=== PATIENT | male | born 1950 | race Caucasian/White ===

== ENCOUNTER 2019-03-31 17:58 | Emergency (ER) | payer MEDICARE ==
[2019-03-31 18:31] VITALS: O2SAT 98
[2019-03-31] MEDS ORDERED: solu-CORTEF 250MG IM STA (18:40)
[2019-03-31] MEDS ORDERED: BENADRYL 50 MG/ML IM ONE (18:41)
--- NOTE | 2019-03-31 18:45 | ERPHSYRPT ---
- History of Present Illness Time Seen by Provider: 03/31/19 18:41 Source: patient Exam Limitations: no limitations Patient Subjective Stated Complaint: Pt states "I was out walking my dog and I felt something on my right hand, I had a spot of blood coming off my hand and it started to swell and I had a redness going up my arm." Triage Nursing Assessment: Pt presented alert and orietned X 3, skin pwd. Pt ambulates with an upright steady gait, able to speak in clear full sentences. pt right hand swollen on fist and second knucle as well first and second digit. Physician History: Pt states "I was out walking my dog and I felt something on my right hand, I had a spot of blood coming off my hand and it started to swell and I had a redness going up my arm." no bleeding from site in ER, no other symptoms Timing/Duration: today Modifying Factors: Improves With: cold therapy Associated Symptoms: denies symptoms Allergies/Adverse Reactions: shrimp Allergy (Severe, Verified 03/31/19 18:32) Swelling codeine Adverse Reaction (Severe, Verified 03/31/19 18:32) Vomiting contrast dye Allergy (Severe, Uncoded 03/31/19 18:32) Swelling Home Medications: Clopidogrel Bisulfate 75 mg [PLAVIX 75 MG Tablet] 75 mg PO DAILY 03/31/19 [History] Metoprolol Succinate [Toprol Xl] 50 mg PO DAILY 03/31/19 [History] Hx Tetanus, Diphtheria Vaccination/Date Given: Yes Hx Influenza Vaccination/Date Given: Yes Hx Pneumococcal Vaccination/Date Given: Yes Immunizations Up to Date: Yes - Review of Systems Constitutional: No Symptoms Eyes: No Symptoms Ears, Nose, & Throat: No Symptoms Respiratory: No Symptoms Cardiac: No Symptoms Abdominal/Gastrointestinal: No Symptoms Skin: Induration - Past Medical History Pertinent Past Medical History: Yes Neurological History: No Pertinent History ENT History: No Pertinent History Cardiac History: Coronary Artery Disease, Hypertension, Myocardial Infarction ( [place]), Other Respiratory History: COPD Endocrine Medical History: No Pertinent History Musculoskeletal History: No Pertinent History GI Medical History: GERD History: No Pertinent History Psycho-Social History: No Pertinent History Male Reproductive Disorders: No Pertinent History - Past Surgical History Past Surgical History: Yes Cardiac: CABG Other Surgical History: left lower lobe removed - Social History Smoking Status: Former smoker Exposure to second hand smoke: Yes Drug Use: none Patient Lives Alone: No - Nursing Vital Signs Nursing Vital Signs: Initial Vital Signs Temperature 98.1 F 03/31/19 18:24 Pulse Rate 64 03/31/19 18:24 Respiratory Rate 18 03/31/19 18:24 Blood Pressure 138/68 03/31/19 18:24 O2 Sat by Pulse Oximetry 98 03/31/19 18:24 Pain Scale Pain Intensity 4 - Physical Exam General Appearance: no apparent distress Eye Exam: PERRL/EOMI Ears, Nose, Throat Exam: normal ENT inspection Neck Exam: normal inspection Respiratory Exam: normal breath sounds Skin Exam: rash (on right hand knuckle area), other SpO2: 98 - Course Nursing assessment & vital signs reviewed: Yes Ordered Tests: Medication Summary Generic Name Dose Route Start Last Admin Trade Name Freq PRN Reason Stop Dose Admin Diphenhydramine HCl 50 mg 03/31/19 18:41 Benadryl 50 Mg/Ml IM 03/31/19 18:42 STAT ONE Hydrocortisone Sodium Succinate 250 mg 03/31/19 18:40 Solu-Cortef 250mg IM 03/31/19 18:41 Q6H STA - Progress Progress: improved Counseled pt/family regarding: diagnosis, need for follow-up - Departure Departure Disposition: Home Clinical Impression: Insect bite (nonvenomous) of right hand, initial encounter Condition: Stable Critical Care Time: No Referrals: ALFREDITO MORALES [Primary Care Provider] - Instructions: Insect Bites and Stings (DC) Additional Instructions: Take Benadryl 25 mg 3 times a day. Apply Benadryl cream and hydrocortisone 1% cream 3 times a day on affected area. Discharge/Care Plan DELORIS MUSE was seen on 03/31/19 in the Emergency Room. The patient was counseled regarding Diagnosis,Lab results, Imaging studies, need for follow up and when to return to the Emergency Room. Prescriptions given: Discharge Note I have spoken with the patient and/or caregivers. I have explained the patient' s condition, diagnosis and treatment plan based on the information available to me at this time. I have answered the patient's and/or caregiver's questions and addressed any concerns. The patient and/or caregivers have as good understanding of the patient's diagnosis, condition and treatment plan as can be expected at this point. The vital signs have been stable. The patient's condition is stable and appropriate for discharge from the emergency department. The patient will pursue further outpatient evaluation with the primary care physician or other designated or consulting physician as outlined in the discharge instructions. The patient and/or caregivers are agreeable to this plan of care and follow-up instructions have been explained in detail. The patient and/or caregivers have received these instruction. The patient/and or caregivers are aware that any significant change in condition or worsening of symptoms should prompt an immediate return to this or the closest emergency department or call 911.
[2019-03-31] MEDS ORDERED: solu-CORTEF 250MG ONE (18:52)
[2019-03-31] MEDS ORDERED: BENADRYL 50 MG/ML ONE (18:52)
[2019-03-31 19:22] VITALS: BP 120/63; PULSE 67
== END 2019-03-31 19:55 | disposition home or self-care (01) ==
LOC: ED 17:58
DX: M79.89 Other specified soft tissue disorders (principal); I25.10 Atherosclerotic heart disease of native coronary artery without angina pectoris; I10 Essential (primary) hypertension; I25.2 Old myocardial infarction; J44.9 Chronic obstructive pulmonary disease, unspecified; K21.9 Gastro-esophageal reflux disease without esophagitis; Z79.899 Other long term (current) drug therapy; W57.XXXA Bitten or stung by nonvenomous insect and other nonvenomous arthropods, initial encounter
CPT/HCPCS: 96372; 99284; J1200; J1720

== ENCOUNTER 2019-11-01 02:18 | Emergency (ER) | payer MEDICARE ==
[2019-11-01] MEDS ORDERED: BABY ASPIRIN 81 MG CHEW PO ONE (02:43)
--- NOTE | 2019-11-01 02:43 | ERPHSYRPT ---
- History of Present Illness Time Seen by Provider: 11/01/19 02:30 Historian: patient, family Exam Limitations: no limitations Patient Subjective Stated Complaint: pt states he was going up the steps at home and began having severe chest pain. states his blood pressure was 244/87 at home with hr of 60 at home prior to taking nitro. Triage Nursing Assessment: pt alert and oriented, answers questions approp. pt ambulatory with steady gait noted. respirations nonlabored with lungs cta. heart rate 70, sinus rhythm on monitor. pt states pain is 2/10 at this time and radiates to back. Physician History: 69 y/o white male with h/o mi, recent cardiac and remote stent placement 7 times , presents with sharp, central chest pain that radiates into back with associated htn. pt has had same sx with mi in past. in the last 7 weeks since stent placement pt has intermittent cp as above with elevated bp resolving rapidly. pt on isosorbide dinitrate, metoprolol, plavix, statin and asa. this am cp came on suddenly and has not resolved as before. pt took 3 ntg. cp improved on arrival here and is a 2/10. pt has been hospitalized 3 times in last 3 months for these sx. pt has remote h/o left lower lobectomy and cardiac triple bypass Timing/Duration: today, sudden, improved Activities at Onset: none Quality: sharpness, stabbing Location: substernal, central Chest Pain Radiation: back Severity of Pain-Max: moderate Severity of Pain-Current: mild Modifying Factors: Improves With: nitroglycerin Associated Symptoms: No nausea, No vomiting, No palpitations, No abdominal pain , No shortness of breath, No cough Prior Chest Pain/Cardiac Workup: cardiac cath, heart attack, recently seen/ treated, recent hospitalization Nitro Today/Relief: 0.4 mg x 3, mild relief Aspirin Treatment Today: no aspirin today Allergies/Adverse Reactions: shrimp Allergy (Severe, Verified 11/01/19 02:47) Swelling codeine Adverse Reaction (Severe, Verified 11/01/19 02:47) Vomiting contrast dye Allergy (Severe, Uncoded 11/01/19 02:47) Swelling Home Medications: Clopidogrel Bisulfate 75 mg [PLAVIX 75 MG Tablet] 75 mg PO DAILY 03/31/19 [History] Metoprolol Succinate [Toprol Xl] 50 mg PO DAILY 03/31/19 [History] Aspirin EC 81 mg [Ecotrin 81 mg] 81 mg PO DAILY 11/01/19 [History] Atorvastatin Calcium [Lipitor] mg PO HS 11/01/19 [History] Isosorbide Mononitrate [Isosorbide Mononitrate ER] 90 mg PO DAILY 11/01/19 [ History] Nitroglycerin 0.4 mg (Ed) [Nitrostat 0.4 MG (ED)] 0.4 mg SL UD 11/01/19 [ History] Hx Tetanus, Diphtheria Vaccination/Date Given: Yes Hx Influenza Vaccination/Date Given: Yes Hx Pneumococcal Vaccination/Date Given: Yes Immunizations Up to Date: Yes - Review of Systems Constitutional: No Symptoms Eyes: No Symptoms Ears, Nose, & Throat: No Symptoms Respiratory: No Symptoms Cardiac: Chest Pain Abdominal/Gastrointestinal: No Symptoms Genitourinary Symptoms: No Symptoms Musculoskeletal: No Symptoms Skin: No Symptoms Neurological: No Symptoms Psychological: No Symptoms Endocrine: No Symptoms Hematologic/Lymphatic: No Symptoms Immunological/Allergic: No Symptoms All Other Systems: Reviewed and Negative - Past Medical History Pertinent Past Medical History: Yes Neurological History: No Pertinent History ENT History: No Pertinent History Cardiac History: Coronary Artery Disease, Hypertension, Myocardial Infarction ( [place]), Other Respiratory History: COPD Endocrine Medical History: No Pertinent History Musculoskeletal History: No Pertinent History GI Medical History: GERD History: No Pertinent History Psycho-Social History: No Pertinent History Male Reproductive Disorders: No Pertinent History - Past Surgical History Past Surgical History: Yes Cardiac: CABG Respiratory: No Pertinent History Gastrointestinal: No Pertinent History Genitourinary: No Pertinent History Musculoskeletal: No Pertinent History Male Surgical History: No Pertinent History Other Surgical History: left lower lobe removed. triple bypass. cath with cardiac stent 7 weeks ago - Social History Smoking Status: Former smoker Exposure to second hand smoke: Yes Drug Use: none Patient Lives Alone: No - Nursing Vital Signs Nursing Vital Signs: Initial Vital Signs Pulse Rate 70 11/01/19 02:21 Respiratory Rate 18 11/01/19 02:21 Blood Pressure 151/72 11/01/19 02:21 O2 Sat by Pulse Oximetry 98 11/01/19 02:21 Pain Scale Pain Intensity 2 - Physical Exam General Appearance: mild distress, alert, anxiety Eye Exam: PERRL/EOMI, eyes nml inspection Ears, Nose, Throat Exam: normal ENT inspection, moist mucous membranes Neck Exam: normal inspection, non-tender, supple, full range of motion Respiratory Exam: normal breath sounds, chest tenderness, lungs clear, airway intact, No respiratory distress Cardiovascular Exam: regular rate/rhythm, normal heart sounds, normal peripheral pulses Gastrointestinal/Abdomen Exam: soft, normal bowel sounds, No tenderness Rectal Exam: not done Back Exam: normal inspection, normal range of motion, CVA tenderness Extremity Exam: normal inspection, normal range of motion, pelvis stable Neurologic Exam: alert, oriented x 3, cooperative, water supply engineer II-XII nml as tested, nml cerebellar function, nml station & gait Skin Exam: normal color, warm, dry Lymphatic Exam: No adenopathy SpO2 Interpretation: normal SpO2: 98 O2 Delivery: Room Air - Course Nursing assessment & vital signs reviewed: Yes EKG Interpreted by Me: RATE (68), Sinus Rhythm, NORMAL AXIS, NORMAL INTERVALS, NORMAL QRS, Other (s1/s111 pattern) Ordered Tests: Active Orders 24 hr Category Date Time Status Blanket Winder Helper STAT Care 11/01/19 02:43 Active EKG-ER Only STAT Care 11/01/19 02:43 Active IV Insertion STAT Care 11/01/19 02:43 Active Pulse Oximetry (ED) STAT Care 11/01/19 02:43 Active CHEST 1 VIEW (PORTABLE) Stat Exams 11/01/19 02:43 Taken CBC W DIFF Stat Lab 11/01/19 02:30 Completed CMP Stat Lab 11/01/19 02:30 Completed NT PRO BNP Stat Lab 11/01/19 02:30 Completed PROTIME WITH INR Stat Lab 11/01/19 02:30 Completed TROPONIN Q3H Lab 11/01/19 02:30 Completed TROPONIN Q3H Lab 11/01/19 04:30 Completed TROPONIN Q3H Lab 11/01/19 08:45 Ordered TROPONIN Q3H Lab 11/01/19 11:45 Ordered TROPONIN Q3H Lab 11/01/19 14:45 Ordered Medication Summary Discontinued Medications Generic Name Dose Route Start Last Admin Trade Name Freq PRN Reason Stop Dose Admin Aspirin 324 mg 11/01/19 02:43 11/01/19 02:51 Baby Aspirin 81 Mg Chew PO 11/01/19 02:44 324 mg STAT ONE Administration Lab/Rad Data: Laboratory Result Diagrams 11/01/19 02:30 11/01/19 02:30 Laboratory Results 11/01/19 11/01/19 11/01/19 Range/Units 04:30 02:30 02:30 WBC (4.0-10.5) K/mm3 RBC (4.1-5.6) M/mm3 Hgb (12.5-18.0) gm/dl Hct (42-50) % MCV (78-100) fl MCH (26-32) pg MCHC (32-36) g/dl RDW (11.5-14.0) % Plt Count (150-450) K/mm3 MPV (6-9.5) fl Gran % (36.0-66.0) % Eos # (Auto) (0-0.5) Absolute Lymphs (auto) (1.0-4.6) Absolute Monos (auto) (0.0-1.3) Lymphocytes % (24.0-44.0) % Monocytes % (0.0-12.0) % Eosinophils % (0.00-5.0) % Basophils % (0.0-0.4) % Absolute Granulocytes (1.4-6.9) Basophils # (0-0.4) PT 11.4 (8.83-12.87) SECONDS INR 1.01 (0.8-3.0) Sodium (137-145) mmol/L Potassium (3.5-5.1) mmol/L Chloride (98-107) mmol/L Carbon Dioxide (22-30) mmol/L Anion Gap (5-15) MEQ/L BUN (9-20) mg/dL Creatinine (0.66-1.25) mg/dL Estimated GFR ML/MIN Glucose (74-106) mg/dL Calcium (8.4-10.2) mg/dL Total Bilirubin (0.2-1.3) mg/dL AST (17-59) U/L ALT (0-50) U/L Alkaline Phosphatase (38-126) U/L Troponin I 0.016 < 0.012 (0.000-0.034) ng/mL NT-Pro-B Natriuret Pep (0-900) pg/mL Serum Total Protein (6.3-8.2) g/dL Albumin (3.5-5.0) g/dL 11/01/19 11/01/19 Range/Units 02:30 02:30 WBC 5.5 (4.0-10.5) K/mm3 RBC 4.43 (4.1-5.6) M/mm3 Hgb 14.2 (12.5-18.0) gm/dl Hct 41.0 L (42-50) % MCV 92.6 (78-100) fl MCH 32.1 H (26-32) pg MCHC 34.6 (32-36) g/dl RDW 13.1 (11.5-14.0) % Plt Count 140 L (150-450) K/mm3 MPV 11.0 H (6-9.5) fl Gran % 45.1 (36.0-66.0) % Eos # (Auto) 0.14 (0-0.5) Absolute Lymphs (auto) 2.38 (1.0-4.6) Absolute Monos (auto) 0.48 (0.0-1.3) Lymphocytes % 43.2 (24.0-44.0) % Monocytes % 8.7 (0.0-12.0) % Eosinophils % 2.5 (0.00-5.0) % Basophils % 0.5 (0.0-0.4) % Absolute Granulocytes 2.48 (1.4-6.9) Basophils # 0.03 (0-0.4) PT (8.83-12.87) SECONDS INR (0.8-3.0) Sodium 138 (137-145) mmol/L Potassium 3.6 (3.5-5.1) mmol/L Chloride 104 (98-107) mmol/L Carbon Dioxide 26 (22-30) mmol/L Anion Gap 11.4 (5-15) MEQ/L BUN 11 (9-20) mg/dL Creatinine 0.93 (0.66-1.25) mg/dL Estimated GFR > 60.0 ML/MIN Glucose 143 H (74-106) mg/dL Calcium 9.7 (8.4-10.2) mg/dL Total Bilirubin 0.40 (0.2-1.3) mg/dL AST 31 (17-59) U/L ALT 18 (0-50) U/L Alkaline Phosphatase 59 (38-126) U/L Troponin I (0.000-0.034) ng/mL NT-Pro-B Natriuret Pep 228 (0-900) pg/mL Serum Total Protein 7.1 (6.3-8.2) g/dL Albumin 4.1 (3.5-5.0) g/dL - Progress Progress: improved, re-examined Air Movement: good Progress Note: 11/01/19 06:25 3 hour repeat ekg at 0522: nsr 55 bpm, s1/s111 pattern, no acute st segment changes. qrs wnl. no changes from earlier ekg. cxr-no acute process. cardiomegaly. [address] betancourt, personal finance instructor covering for pts personal finance instructor, dr. navarro. i reviewed pt hx, labs(trend as well), xray and ekg results with dr. betancourt. he states ok to discharge to home, pt to call this am to arrange follow up appt. add lisinopril 5mg to daily regimen. Blood Culture(s) Obtained: No Antibiotics given: No Discussed with Dr.: Other (Dr. Betancourt) Counseled pt/family regarding: lab results, diagnosis, need for follow-up, rad results - Departure Departure Disposition: Home Clinical Impression: Chest pain, Hypertension Condition: Stable Critical Care Time: No Referrals: ALFREDITO MORALES [Primary Care Provider] - Additional Instructions: call dr. navarro's office this morning. take new medication of lisinopril daily. continue your other medications. Prescriptions: Lisinopril 5 mg [Zestril 5 MG] 5 mg PO DAILY #20 tablet
[2019-11-01 02:53] LABS: Absolute Neutrophil Ct (ANC) 2.48 (1.4-6.9); BASOPHIL % 0.5 % (0.0-0.4); Basophil (Absolute #) 0.03 (0-0.4); Eosinophil % 2.5 % (0.00-5.0); Eosinophil (Absolute #) 0.14 (0-0.5); Hemoglobin 14.2 gm/dl (12.5-18.0); INR 1.01 (0.8-3.0); Lymphocyte (Absolute #) 2.38 (1.0-4.6); Lymphocytes % 43.2 % (24.0-44.0); Mean Cell Volume 92.6 fl (78-100); Mean Corpuscular Hemoglobin 32.1 pg (26-32); Mean Corpuscular Hgb Concent. 34.6 g/dl (32-36); Monocyte (Absolute #) 0.48 (0.0-1.3); Monocytes % 8.7 % (0.0-12.0); Neutrophil % 45.1 % (36.0-66.0); PROTIME 11.4 SECONDS (8.83-12.87); Platelet Count 140 K/mm3 (150-450); Red Blood Count 4.43 M/mm3 (4.1-5.6); Red Cell Distribution Width 13.1 % (11.5-14.0); White Blood Count 5.5 K/mm3 (4.0-10.5)
[2019-11-01 03:07] LABS: ALBUMIN 4.1 g/dL (3.5-5.0); ALKALINE PHOSPHATASE 59 U/L (38-126); ANION GAP 11.4 MEQ/L (5-15); BLOOD UREA NITROGEN 11 mg/dL (9-20); CHLORIDE 104 mmol/L (98-107); Calcium 9.7 mg/dL (8.4-10.2); Carbon Dioxide 26 mmol/L (22-30); Creatinine 1 0.93 mg/dL (0.66-1.25); Glucose 143 mg/dL (74-106); NT PRO BNP 228 pg/mL (0-900); Potassium 3.6 mmol/L (3.5-5.1); SGOT/AST 31 U/L (17-59); SGPT/ALT 18 U/L (0-50); SODIUM 138 mmol/L (137-145); Total Protein 7.1 g/dL (6.3-8.2)
[2019-11-01] MEDS ORDERED: Zestril 5 MG PO STA (06:34)
[2019-11-01 07:09] VITALS: BP 148/77; PULSE 68; O2SAT 97
--- NOTE | 2019-11-01 08:55 | XRAY ---
Indication: Chest pain. Comparison: None Portable apical lordotic chest demonstrates cardiomegaly with CABG surgery obscuring left lung base. Remaining visualized lungs clear. Bony thorax intact with mild degenerative changes. Impression: Cardiomegaly. Negative acute pneumonic process or CHF.
== END 2019-11-01 07:20 | disposition home or self-care (01) ==
LOC: ED 02:18
DX: R07.9 Chest pain, unspecified (principal); I10 Essential (primary) hypertension
CPT/HCPCS: 36000; 36415; 71045; 80053; 83880; 84484; 85025; 85610; 93005; 93041; 94760; 99284; A9270-GY

== ENCOUNTER 2023-12-02 18:21 | Emergency (ER) | payer MEDICARE ==
[2023-12-02 18:33] VITALS: TEMP 98.1
[2023-12-02 19:24] LABS: Absolute Neutrophil Ct (ANC) 2.59 x10^3/uL (1.4-6.9); BASOPHIL % 0.8 % (0.0-0.4); Basophil (Absolute #) 0.04 x10^3/uL (0-0.4); Eosinophil % 4.1 % (0.00-5.0); Hematocrit 38.9 % (42-50); Hemoglobin 12.8 g/dL (12.5-18.0); IMMATURE GRAN # 0.02 x10^3u/L (0.00-0.03); IMMATURE GRAN % 0.4 % (0.00-0.4); Lymphocyte (Absolute #) 1.68 x10^3/uL (1.0-4.6); Lymphocytes % 34.1 % (24.0-44.0); Mean Cell Volume 92.4 fL (78-100); Mean Corpuscular Hemoglobin 30.4 pg (26-32); Mean Corpuscular Hgb Concent. 32.9 g/dL (32-36); Mean Platelet Volume 10.4 fL (7.5-11.0); Monocyte (Absolute #) 0.39 x10^3/uL (0.0-1.3); Monocytes % 7.9 % (0.0-12.0); Neutrophil % 52.7 % (36.0-66.0); Platelet Count 146 x10^3/uL (150-450); Red Blood Count 4.21 x10^6/uL (4.1-5.6); Red Cell Distribution Width 13.6 % (11.5-14.0); White Blood Count 4.9 x10^3/uL (4.0-10.5)
--- NOTE | 2023-12-02 19:36 | ERPHSYRPT ---
- History of Present Illness Historian: patient Patient Subjective Stated Complaint: Pt states "I was sitting at home and I got the oddest feeling of like a little buzz from my pacemaker all the way down to my feet, it has a perfect beat to it." "Dr Haddad is steel spar operator and his partner put the pacemaker in about 5 weeks ago." Triage Nursing Assessment: pt presented alert and oriented X3, skin pwd. PT ambulates with an upright steady gait, able to speak in clear full sentences. pt resting comfortably on the bed without difficulty Physician History: 73 years old male with past medical history of coronary artery disease, CABG times 12/2005, history of sick sinus syndrome s/p pacemaker placed 5 weeks ago at [facility]. The patient is brought by EMS to the emergency room because the patient has been feeling buzzing like feeling throughout his chest down to both feet that happened 2 hours prior to arrival to the emergency room. Per patient his pacemaker was checked by [employer] yesterday and was working normal. He denies any chest pain or shortness of breath, no abdominal pain nausea or vomiting. He called his steel spar operator Dr. Haddad who advised him to come to the emergency room. My understanding the pacemaker was evaluated at our emergency room, it seemed that it was functioning normal. Aspirin Treatment Today: no aspirin today Allergies/Adverse Reactions: shrimp Allergy (Severe, Verified 11/01/19 02:47) Swelling codeine Adverse Reaction (Severe, Verified 11/01/19 02:47) Vomiting contrast dye Allergy (Severe, Uncoded 11/01/19 02:47) Swelling Home Medications: Clopidogrel Bisulfate [PLAVIX 75 MG Tablet] 75 mg PO DAILY 03/31/19 [History] Metoprolol Succinate [Toprol Xl] 50 mg PO DAILY 03/31/19 [History] Aspirin EC 81 mg [Ecotrin 81 mg] 81 mg PO DAILY 11/01/19 [History] Atorvastatin Calcium [Lipitor] 10 mg PO HS 11/01/19 [History] Isosorbide Mononitrate [Isosorbide Mononitrate ER] 90 mg PO DAILY 11/01/19 [History] Nitroglycerin 0.4 mg (Ed) [Nitrostat 0.4 MG (ED)] 0.4 mg SL UD 01/02/20 [History] Hx Tetanus, Diphtheria Vaccination/Date Given: Yes Hx Influenza Vaccination/Date Given: Yes Hx Pneumococcal Vaccination/Date Given: Yes Immunizations Up to Date: No Travel Risk - International Travel Have you traveled outside of the country in past 3 weeks: No - Coronavirus Screening Are you exhibiting any of the following symptoms?: No Close contact with a COVID-19 positive Pt in past 14-21 Days: No - Vaccine Status Have you recieved a Covid-19 vaccination: No - Review of Systems Constitutional: No Fever, No Chills Eyes: No Symptoms Ears, Nose, & Throat: No Symptoms Respiratory: No Cough, No Dyspnea Cardiac: Other ( buzzing like sounds/feeling at the site of the pacemaker radiating down the chest abdomen and both feet ), No Chest Pain, No Edema, No Syncope Abdominal/Gastrointestinal: No Abdominal Pain, No Nausea, No Vomiting, No Diarrhea Genitourinary Symptoms: No Dysuria Musculoskeletal: No Back Pain, No Neck Pain Skin: No Rash Neurological: No Dizziness, No Focal Weakness, No Sensory Changes Psychological: No Symptoms Endocrine: No Symptoms All Other Systems: Reviewed and Negative - Past Medical History Pertinent Past Medical History: Yes Neurological History: No Pertinent History ENT History: No Pertinent History Cardiac History: Coronary Artery Disease, Hypertension, Myocardial Infarction ([place]), Other Respiratory History: COPD Endocrine Medical History: No Pertinent History Musculoskeletal History: No Pertinent History GI Medical History: GERD History: No Pertinent History Psycho-Social History: No Pertinent History Male Reproductive Disorders: No Pertinent History - Past Surgical History Past Surgical History: Yes Cardiac: CABG, Pacemaker Respiratory: No Pertinent History Gastrointestinal: No Pertinent History Genitourinary: No Pertinent History Musculoskeletal: No Pertinent History Male Surgical History: No Pertinent History Other Surgical History: left lower lobe removed. triple bypass. cath with cardiac stent 7 weeks ago - Social History Smoking Status: Former smoker Exposure to second hand smoke: Yes Drug Use: none Patient Lives Alone: No - Nursing Vital Signs Nursing Vital Signs: Initial Vital Signs Temperature 98.1 F 12/02/23 18:28 Pulse Rate 72 12/02/23 18:28 Respiratory Rate 20 12/02/23 18:28 Blood Pressure 123/72 12/02/23 18:28 O2 Sat by Pulse Oximetry 98 12/02/23 18:28 Pain Scale Pain Intensity 0 - Physical Exam General Appearance: no apparent distress, alert Eye Exam: PERRL/EOMI, eyes nml inspection Ears, Nose, Throat Exam: normal ENT inspection, moist mucous membranes Neck Exam: normal inspection, non-tender, supple, full range of motion Respiratory Exam: normal breath sounds, lungs clear, No respiratory distress Cardiovascular Exam: regular rate/rhythm, normal heart sounds Gastrointestinal/Abdomen Exam: soft, No tenderness, No mass Back Exam: normal inspection, No CVA tenderness, No vertebral tenderness Extremity Exam: normal inspection, normal range of motion Neurologic Exam: alert, oriented x 3, cooperative, normal mood/affect, sensation nml, No motor deficits Skin Exam: normal color, warm, dry SpO2: 98 - Course EKG Interpreted by Me: RATE (62), Other (Atrial paced rhythm) Ordered Tests: Active Orders 24 hr Category Date Time Status Portable Chest [CHEST 1 VIEW (PORTABLE)] Stat Exams 12/02/23 20:47 Taken CBC W DIFF Stat Lab 12/02/23 19:15 Completed CMP Stat Lab 12/02/23 19:15 Completed PROTIME WITH INR Stat Lab 12/02/23 19:15 Completed PTT Stat Lab 12/02/23 19:15 Completed TROPONIN Q4H Lab 12/02/23 19:15 Completed TROPONIN Q4H Lab 12/02/23 23:00 Ordered TROPONIN Q4H Lab 12/03/23 03:00 Ordered Lab/Rad Data: Laboratory Result Diagrams 12/02/23 19:15 12/02/23 19:15 Laboratory Results 12/02/23 12/02/23 12/02/23 Range/Units 19:15 19:15 19:15 WBC (4.0-10.5) x10^3/uL RBC (4.1-5.6) x10^6/uL Hgb (12.5-18.0) g/dL Hct (42-50) % MCV (78-100) fL MCH (26-32) pg MCHC (32-36) g/dL RDW (11.5-14.0) % Plt Count (150-450) x10^3/uL MPV (7.5-11.0) fL Gran % (36.0-66.0) % Immature Gran % (Auto) (0.00-0.4) % Nucleat RBC Rel Count (0.00-0.1) % Eos # (Auto) (0-0.5) x10^3/uL Immature Gran # (Auto) (0.00-0.03) x10^3u/L Absolute Lymphs (auto) (1.0-4.6) x10^3/uL Absolute Monos (auto) (0.0-1.3) x10^3/uL Absolute Nucleated RBC (0.00-0.01) x10^3u/L Lymphocytes % (24.0-44.0) % Monocytes % (0.0-12.0) % Eosinophils % (0.00-5.0) % Basophils % (0.0-0.4) % Absolute Granulocytes (1.4-6.9) x10^3/uL Basophils # (0-0.4) x10^3/uL PT 11.1 (9.4-12.5) SECONDS INR 1.02 (0.8-3.0) APTT 26.6 (25.1-36.5) SECONDS Sodium 135 L (137-145) mmol/L Potassium 4.1 (3.5-5.1) mmol/L Chloride 105 (98-107) mmol/L Carbon Dioxide 25 (22-30) mmol/L Anion Gap 8.5 (5-15) MEQ/L BUN 14 (9-20) mg/dL Creatinine 1.08 (0.66-1.25) mg/dL Estimated GFR 71.6 ML/MIN Glucose 138 H (74-106) mg/dL Calcium 9.3 (8.4-10.2) mg/dL Total Bilirubin 0.60 (0.2-1.3) mg/dL AST 21 (17-59) U/L ALT 15 (0-50) U/L Alkaline Phosphatase 52 (38-126) U/L Troponin I < 0.012 (0.000-0.034) ng/mL Serum Total Protein 6.5 (6.3-8.2) g/dL Albumin 3.9 (3.5-5.0) g/dL 12/02/23 Range/Units 19:15 WBC 4.9 (4.0-10.5) x10^3/uL RBC 4.21 (4.1-5.6) x10^6/uL Hgb 12.8 (12.5-18.0) g/dL Hct 38.9 L (42-50) % MCV 92.4 (78-100) fL MCH 30.4 (26-32) pg MCHC 32.9 (32-36) g/dL RDW 13.6 (11.5-14.0) % Plt Count 146 L (150-450) x10^3/uL MPV 10.4 (7.5-11.0) fL Gran % 52.7 (36.0-66.0) % Immature Gran % (Auto) 0.4 (0.00-0.4) % Nucleat RBC Rel Count 0.0 (0.00-0.1) % Eos # (Auto) 0.20 (0-0.5) x10^3/uL Immature Gran # (Auto) 0.02 (0.00-0.03) x10^3u/L Absolute Lymphs (auto) 1.68 (1.0-4.6) x10^3/uL Absolute Monos (auto) 0.39 (0.0-1.3) x10^3/uL Absolute Nucleated RBC 0.00 (0.00-0.01) x10^3u/L Lymphocytes % 34.1 (24.0-44.0) % Monocytes % 7.9 (0.0-12.0) % Eosinophils % 4.1 (0.00-5.0) % Basophils % 0.8 (0.0-0.4) % Absolute Granulocytes 2.59 (1.4-6.9) x10^3/uL Basophils # 0.04 (0-0.4) x10^3/uL PT (9.4-12.5) SECONDS INR (0.8-3.0) APTT (25.1-36.5) SECONDS Sodium (137-145) mmol/L Potassium (3.5-5.1) mmol/L Chloride (98-107) mmol/L Carbon Dioxide (22-30) mmol/L Anion Gap (5-15) MEQ/L BUN (9-20) mg/dL Creatinine (0.66-1.25) mg/dL Estimated GFR ML/MIN Glucose (74-106) mg/dL Calcium (8.4-10.2) mg/dL Total Bilirubin (0.2-1.3) mg/dL AST (17-59) U/L ALT (0-50) U/L Alkaline Phosphatase (38-126) U/L Troponin I (0.000-0.034) ng/mL Serum Total Protein (6.3-8.2) g/dL Albumin (3.5-5.0) g/dL - Progress Progress: unchanged Progress Note: 12/02/23 19:34 73 years old male with past medical history of coronary artery disease, CABG times 12/2005, history of sick sinus syndrome s/p pacemaker placed 5 weeks ago at [facility]. The patient is brought by EMS to the emergency room because the patient has been feeling buzzing like feeling throughout his chest down to both feet that happened 2 hours prior to arrival to the emergency room. Per patient his pacemaker was checked by [employer] yesterday and was working normal. He denies any chest pain or shortness of breath, no abdominal pain nausea or vomiting. He called his steel spar operator Dr. Haddad who advised him to come to the emergency room. My understanding the pacemaker was evaluated at our emergency room, it seemed that it was functioning normal. Emergency room course and medical decision making. Check an EKG, demonstrated atrial paced rhythm at a rate of 62 bpm. Check CBC, CMP, troponin, portable chest x-ray. Once I get the results I will contact his steel spar operator, Dr. Haddad. 12/02/23 20:48 Patient remained stable, In fact the buzzing effect is less in his chest, but still feels it in his lower legs. His workup revealed normal troponin less than 0.012. Sodium 135, potassium 4.1, BUN 14, creatinine 1.08 and glucose 138. White blood cell count 4.9, hemoglobin 12.8, hematocrit 39 and platelets 146. 12/02/23 21:15 The case is discussed with Dr. Haddad, the patient's steel spar operator. He is updated with patient's complain, symptoms, physical exam, lab work, EKG, and the pacemaker interpretation by [employer] personal. He wanted me to palpate his upper abdomen for any pulsating feeling. That was negative. He wants the patient to be discharged and have him follow-up with him next week. The patient does have a follow-up appointment this coming Tuesday. The patient and his were updated with the above plan. He will be discharged home. He can take Tylenol 650 mg 4 times a day as needed. Follow-up as needed for any worsening symptoms. Medical Desision Making - Discussion of managment Care discussed with:: specialist () Will see patient: In office - Departure Departure Disposition: Home Clinical Impression: Pacemaker complications Condition: Stable Critical Care Time: No Referrals: ALFREDITO MORALES [Primary Care Provider] - Follow up/PCP as directed Additional Instructions: Follow-up with Dr. Haddad, on Tuesday, December 05/2024. Tylenol 650 mg - 1000 mg 4 times a day as needed follow-up as needed for any worsening symptoms like chest pain, shortness of breath, dizziness
[2023-12-02 19:39] LABS: ALBUMIN 3.9 g/dL (3.5-5.0); ANION GAP 8.5 MEQ/L (5-15); BILIRUBIN,TOTAL 0.6 mg/dL (0.2-1.3); Calcium 9.3 mg/dL (8.4-10.2); Creatinine 1 1.08 mg/dL (0.66-1.25); EST GLOMERULAR FILTRATION RATE 71.6 ML/MIN; Potassium 4.1 mmol/L (3.5-5.1); Total Protein 6.5 g/dL (6.3-8.2)
[2023-12-02 19:40] LABS: INR 1.02 (0.8-3.0); PROTIME 11.1 SECONDS (9.4-12.5); PTT 26.6 SECONDS (25.1-36.5)
[2023-12-02 21:08] VITALS: BP 123/73; PULSE 63; RESP 19
[2023-12-02 21:48] VITALS: O2SAT 98
--- NOTE | 2023-12-03 07:50 | XRAY ---
Indication: Chest pain. Comparison: November 01, 2019 Portable chest again demonstrates cardiomegaly with CABG. New left dual-lead pacemaker. No focal infiltrate, consolidation, or large effusion. Bony thorax intact again with mild degenerative changes. Impression: Continuing nonacute chest with chronic features.
== END 2023-12-02 21:55 | disposition home or self-care (01) ==
LOC: ED 18:21
DX: T82.9XXA Unspecified complication of cardiac and vascular prosthetic device, implant and graft, initial encounter (principal); I10 Essential (primary) hypertension; Z79.02 Long term (current) use of antithrombotics/antiplatelets; Z79.899 Other long term (current) drug therapy; Z28.310 Unvaccinated for COVID-19
CPT/HCPCS: 36415; 71045; 80053; 84484; 85025; 85610; 85730; 99283

== ENCOUNTER 2024-05-10 17:40 | Emergency (ER) | payer MEDICARE ==
[2024-05-10 17:51] VITALS: BP 122/79; PULSE 85; TEMP 97.3; O2SAT 97
[2024-05-10] MEDS ORDERED: DECADRON 10MG INJ. ONE (18:17)
[2024-05-10] MEDS: Decadron 4 MG INJ IM ONE (18:19)
[2024-05-10] MEDS ORDERED: BENADRYL 25 MG CAPSULE ONE (18:20)
[2024-05-10] MEDS: BENADRYL 25 MG CAPSULE PO ONE (18:20)
--- NOTE | 2024-05-10 18:23 | ERPHSYRPT ---
- History of Present Illness Time Seen by Provider: 05/10/24 17:54 Source: patient Exam Limitations: no limitations Patient Subjective Stated Complaint: pt was stung by a wasp on his left hand/wrist Triage Nursing Assessment: Pt brought self to the ER, vitals wnl, rates pain as 2/10, sting to left hand/wrist, pt has hx of red streaks going up arm from stings, pulses normal, doesn't appear to be in any distress Physician History: 74 years old male presented in the ER after stung by wasp on the left hand dorsum prior to arrival with the swelling and tingling sensation in the arm. Patient does have history of allergies but no anaphylaxis to it. Reports having standing few years ago needed steroid shot. Up-to-date with tetanus. 2 x 2 cm area of soft tissue swelling on dorsum of left hand with a stung in the middle. Minimal redness. He is given dexamethasone along with Benadryl and recommended topical steroid to go home and outpatient follow-up. Discussed signs symptoms of worsening needing return to ER which he seems understanding. No signs of anaphylaxis, do not think needs any other medications. Allergies/Adverse Reactions: shrimp Allergy (Severe, Verified 05/10/24 17:51) Swelling codeine Adverse Reaction (Severe, Verified 05/10/24 17:51) Vomiting contrast dye Allergy (Severe, Uncoded 05/10/24 17:51) Swelling Home Medications: Clopidogrel Bisulfate [PLAVIX 75 MG Tablet] 75 mg PO DAILY 03/31/19 [History] Metoprolol Succinate [Toprol Xl] 50 mg PO DAILY 03/31/19 [History] Aspirin EC 81 mg [Ecotrin 81 mg] 81 mg PO DAILY 11/01/19 [History] Atorvastatin Calcium [Lipitor] 10 mg PO HS 11/01/19 [History] Isosorbide Mononitrate [Isosorbide Mononitrate ER] 90 mg PO DAILY 11/01/19 [History] Nitroglycerin 0.4 mg (Ed) [Nitrostat 0.4 MG (ED)] 0.4 mg SL UD 11/01/19 [History] Hx Tetanus, Diphtheria Vaccination/Date Given: Yes Hx Influenza Vaccination/Date Given: Yes Hx Pneumococcal Vaccination/Date Given: Yes Travel Risk - International Travel Have you traveled outside of the country in past 3 weeks: No - Emerging Infectious Disease Are you exhibiting symptoms associated with any current EIDs: No - Review of Systems Constitutional: No Symptoms Ears, Nose, & Throat: No Symptoms Respiratory: No Symptoms Cardiac: No Symptoms Abdominal/Gastrointestinal: No Symptoms Musculoskeletal: No Symptoms Skin: Induration, Skin Lesions Neurological: No Symptoms Endocrine: No Symptoms - Past Medical History Pertinent Past Medical History: Yes Neurological History: No Pertinent History ENT History: No Pertinent History Cardiac History: Coronary Artery Disease, Hypertension, Myocardial Infarction ([place]), Other Respiratory History: COPD Endocrine Medical History: No Pertinent History Musculoskeletal History: No Pertinent History GI Medical History: GERD History: No Pertinent History Psycho-Social History: No Pertinent History Male Reproductive Disorders: No Pertinent History - Past Surgical History Past Surgical History: Yes Cardiac: CABG, Pacemaker Respiratory: No Pertinent History Gastrointestinal: No Pertinent History Genitourinary: No Pertinent History Musculoskeletal: No Pertinent History Male Surgical History: No Pertinent History Other Surgical History: left lower lobe removed. triple bypass. cath with cardiac stent 7 weeks ago - Social History Smoking Status: Former smoker Exposure to second hand smoke: No Drug Use: none Patient Lives Alone: No - Social Determinants of Health Will the patient participate in the screening: Yes Do you worry about a steady place to live?: No Do you have any problems with any of the following?: No known problems In the past 12 months,have you had to go without utilities?: No Transportation Issues: No Has anyone in your support network made you feel unsafe?: No Have you or anyone in your house had to go without enough: No - Nursing Vital Signs Nursing Vital Signs: Initial Vital Signs Temperature 97.3 F 05/10/24 17:45 Pulse Rate 85 05/10/24 17:45 Blood Pressure 122/79 05/10/24 17:45 O2 Sat by Pulse Oximetry 97 05/10/24 17:45 Pain Scale Pain Intensity 2 - Physical Exam General Appearance: no apparent distress Ears, Nose, Throat Exam: normal ENT inspection, pharynx normal, moist mucous membranes Neck Exam: normal inspection, non-tender, supple, full range of motion Respiratory Exam: normal breath sounds, lungs clear Cardiovascular Exam: regular rate/rhythm, normal heart sounds Extremity Exam: normal range of motion, other (Left hand dorsum soft tissue swelling 2 x 2 cm. Mild increased temperature. Minimal tenderness.) Neurologic Exam: alert, oriented x 3, cooperative Skin Exam: normal color SpO2 Interpretation: normal SpO2: 97 O2 Delivery: Room Air Ordered Tests: Medication Summary Discontinued Medications Generic Name Dose Route Start Last Admin Trade Name Jennifer PRN Reason Stop Dose Admin Dexamethasone Sodium Phosphate 10 mg 05/10/24 18:03 Dexamethasone Sod Phosphate 4 Mg/Ml Ml IM 05/10/24 18:04 STAT ONE - Progress Progress Note: 05/10/24 18:20 74 years old male presented in the ER after stung by wasp on the left hand dorsum prior to arrival with the swelling and tingling sensation in the arm. Patient does have history of allergies but no anaphylaxis to it. Reports having standing few years ago needed steroid shot. Up-to-date with tetanus. 2 x 2 cm area of soft tissue swelling on dorsum of left hand with a stung in the middle. Minimal redness. He is given dexamethasone along with Benadryl and recommended topical steroid to go home and outpatient follow-up. Discussed signs symptoms of worsening needing return to ER which he seems understanding. No signs of anaphylaxis, do not think needs any other medications. Counseled pt/family regarding: diagnosis, need for follow-up Medical Desision Making - Diagnostic Testing Diagnostic test were ordered, analyzed, and reviewed by me: No - Risk of complications The pt has a mod risk of morbidity or mortality based on: Need for prescription drug management - Departure Departure Disposition: Home Clinical Impression: Accidental wasp sting Condition: Stable Critical Care Time: No Referrals: ALFREDITO MORALES [Primary Care Provider] - Follow up with PCP 1 day Instructions: Insect Bites and Stings ([place]) Additional Instructions: Take Tylenol as needed, intermittent ice application. Topical hydrocortisone application twice a day. Take Benadryl as needed. Return to ER for increasing swelling pain, difficulty movements of the fingers/wrist or if having difficulty breathing, throat closing sensations, chest pain, feeling dizzy lightheaded Etc. Prescriptions: Diphenhydramine HCl 25 mg [Benadryl 25 mg Capsule] 25 mg PO Q4H PRN PRN #20 cap PRN Reason: Itching Hydrocortisone 1% Cream [Cortisone 1% Cream] 15 gm TP BID 5 Days #1
== END 2024-05-10 18:34 | disposition home or self-care (01) ==
LOC: ED 17:40
DX: T63.461A Toxic effect of venom of wasps, accidental (unintentional), initial encounter (principal); M79.89 Other specified soft tissue disorders; I10 Essential (primary) hypertension; Z79.02 Long term (current) use of antithrombotics/antiplatelets; Z79.899 Other long term (current) drug therapy
CPT/HCPCS: 96372; 99283; J1100; A9270-GY